=== PATIENT | female | born 1990 | race Asian ===

== ENCOUNTER → 2016-08-17 | Outpatient (CLI) | payer OTHER ==
--- NOTE | 2016-08-17 11:45 | US ---
August 17, 2016 Dear Tracie Travis NP, Thank you for allowing us to see your patient Jc Ferrari for growth evaluation. As you know, she is a 25-year-old 1. Her due date is 10/23/2016 based on LMP consistent with 23-week ultra sound. Her current gestational age based on this dating is 30 weeks 3 days. Her history is signific ant for echogenic intracardiac focus (EIF) noted on anatomy ultrasound. ULTRASOUND: Number of fetuses: 1 Placental location: anterior, no previa presentation: cephalic Heart Rate: 135 bpm Cervix: 3.2 cm viewed transabdominally Maximum vertical pocket: 5.2 cm Measurements: Biparietal diameter: 75 mm 30 weeks, 2 days Head circumference: 290 mm 32 weeks, 0 days Abdominal circumference: 279 mm 32 weeks, 0 days Femur length: 58 mm 30 weeks, 3 days Humerus length: 51 mm 29 weeks, 6 days Transcerebellar diameter: 38 mm 31 weeks, 2 days Average ultrasound age: 30 weeks, 3 days Estimated weight: 1744 gm weight percentile: 69 % ANATOMY anatomy was previously assessed. Today the following structures were visualized and appeared n ormal: supratentorial brain, lateral ventricle measuring 3.1 mm, posterior fossa, 4-chamber heart vi ew, left and right ventricular outflow tracts, inferior and superior vena cava, stomach, bladder, khadijah ateral kidneys. The previously noted echogenic intracardiac focus was not observed on today's study. IMPRESSION: 1. Intrauterine at 30 weeks, 3 days; TOMASA of 10/23/2016. 2. growth is appropriate size for dates. 3. anatomy was previously assessed and today's ultrasound continues to provide reassurance of normal appearing anatomy. RECOMMENDATIONS: I was pleased to share today's ultrasound results with your patient. I will leave further ultrasound follow-up to your clinical discretion. If you would like us to reevaluate her at a later date we wo uld be happy to do so. Thank you for allowing us the opportunity to evaluate your patient. Should you have any further ques tions or concerns please do not hesitate to contact me. No E&M for this encounter. Jo Ann Mar M.D., Ph.D. Diagnosis Department of Obstetrics and Gynecology [facility]
--- NOTE | 2016-08-18 00:03 | US ---
Follow-Up Obstetrical Sonography CLINICAL HISTORY: 25-year-old female with a history of an echogenic intracardiac focus noted on a pr ior anatomic survey. TECHNIQUE: A curvilinear 5-megahertz transducer was used to sonographically evaluate the fetus and t he placenta. M-mode Doppler was used. Dr. Jo Ann Mar is present. Multiple cine clips are stor ed on PACS. COMPARISON STUDY: Chest sonography, dated June 27, 2016. LMP: January 17, 2016, indicating an age of 30 weeks, 3 days, and an estimated date of delivery of 2016. FINDINGS: Again, there is a single viable intrauterine gestation. The fetus is currently vertex in presentation. The maternal cervical length is measured transabdominally at 3.2 cm. The placenta is anteriorly-situated, with no previa. The amniotic fluid volume is appropriate, with a maximal vertic al pocket of 5.2 cm. The heart rate is calculated at 135 bpm. The anatomic survey has been performed in the past, and on today's study, the supra- and infrat entorial structures appear normal. The lateral ventricular diameter measures 3.1 mm. The four-chamb ered heart, right and left ventricular outflow tracts, the inflow tracts, three-vessel tracheal view, interventricular septum, stomach, kidneys, and urinary bladder are identified. A previously describ ed LVEIF was not identified today. biometry is as follows: The biparietal diameter is 75 mm, corresponding to an age of 30 weeks, 2 days, +/- 3 weeks, 1 day, w hich is at the 30th percentile. The head circumference is 290 mm, corresponding to an age of 32 weeks, 0 days, +/- 3 weeks, 0 days, w hich is at the 58th percentile. The abdominal circumference is 279 mm, corresponding to an age of 32 weeks, 0 days, +/- 3 weeks, 0 da ys, which is at the 86th percentile. The femur length is 58 mm, corresponding to an age of 30 weeks, 3 days, +/- 3 weeks, 0 days, which is at the 35th percentile. The humerus length is 51 mm, corresponding to an age of 29 weeks, 6 days. The transverse cerebellar diameter is 38 mm, corresponding to an age of 31 weeks, 2 days, +/- 1 week, 2 days. The composite gestational age is 31 weeks, 2 days. The estimated weight is 1744 gm, +/- 255 gm, which is 3 lbs., 14 oz., +/- 9 ounces, which is at the 69th percentile. The head circumference to abdominal circumference ratio is normal, measuring 1.04. The femur length to biparietal diameter ratio is normal, measuring 77%, and the femur length to abdominal circumferenc e ratio is normal, measuring 21%. IMPRESSION: There is a single viable intrauterine gestation, with no overt structural anomaly, having biometry concordant with menstrual dating and an appropriate interval growth since a previous study of June 27, 2016. A left ventricular echogenic intracardiac focus was not identified on ilir rodriguez's study. Please also refer to Dr. Mar' separate assessments and specific recommendations for follow up. E:KESHA/patrick
== END ==
LOC: FIMAGING 08:57
PROVIDERS: ATTEND Midwife
DX: Z03.79 Encounter for other suspected maternal and fetal conditions ruled out (principal); Z3A.30 30 weeks gestation of pregnancy

== ENCOUNTER 2016-10-22 18:29 | Inpatient (IN) | payer OTHER ==
[2016-10-22] MEDS ORDERED: OXYTOCIN/RINGERS LACTATE 1,000 ML IV PRN (19:10)
[2016-10-22] MEDS ORDERED: LIDOCAINE 1% 30 ML SDV SC PRN (19:10)
[2016-10-22] MEDS ORDERED: AMPICILLIN SODIUM 2 GM in NS 100 ML IV ONE (19:10)
[2016-10-22] MEDS ORDERED: LR 1,000 ML IV PRN (19:10)
[2016-10-22] MEDS ORDERED: OLIVE OIL 118 ML BTL MISC PRN (19:10)
[2016-10-22] MEDS ORDERED: EPSOM SALT 454 GM TP PRN (19:10)
[2016-10-22] MEDS ORDERED: fentaNYL 100 MCG/2 ML INJ IVP ONE (19:10)
[2016-10-22] MEDS ORDERED: TERBUTALINE SULFATE 1 MG/ML VIAL IV PRN (19:10)
--- NOTE | 2016-10-22 19:28 | PDGENHP ---
History and Physical - Chief Complaint contractions - History of Present Illness Pt is a 25 y G1 at 40w0d by LMP and 20 week US here for contraction. Initially started last night and then resolved, then started again at 1700. Now every 3-4 minutes, more painful. Some bloody show. No LOF. Active baby. Low risk . Labs significant for GBS positive, elevated 1 hr GTT, 3 hr with single elevated value, O+, antibody neg, hct 36.2, Varicella non immune, rubella immune, RPR NR , urine culture negative, Hep B NR, HIV NR, GC/CT NR. EIF noted on 20 week anatomy US, resolved Late to care at 21 weeks, no genetic screening performed. S/p tdap and flu vaccines Pt is Khmer speaking only, her is translating. Also her mother is here. History Information - Allergies/Home Medication List Allergies/Adverse Reactions: peach Allergy (Verified 10/22/16 19:10) shellfish derived Allergy (Verified 10/22/16 19:10) I have personally reviewed and updated: family history, medical history, social history, surgical history - Past Medical History no pertinent PMH - Surgical History Reports: no pertinent surgical hx - Family History Positive for: non-pertinent - Social History Smoking Status: Never smoked Alcohol Use: None Drug Use: None Review of Systems ROS: 10pt was reviewed & negative except for what was stated in HPI & below Physical Exam Physical Exam: 128/89, 75, 36.4 Gen: awake, alert, NAD between contractions, sweating with heavy breathing in obvious discomfort during contractions Resp: unlabored CV: RRR Abd: soft, nontender, gravid, EFW 7# Ext: no edema SVE: /-2/intact/vtx vtx confirmed on US FHR baseline 130, mod oni, + accels, no decels Assessment & Plan Assessment: 25 yo G1 at 40w0d Active labor at term GBS pos status reassuring Plan: Admit for labor Continuous monitoring T&S and CBC Routine intrapartum care IV placement Ampicillin IV fentanyl now, she is requesting epidural soon, will alert anesthesia Expect
[2016-10-22] MEDS ORDERED: OLIVE OIL 118 ML BTL ONE (19:43)
[2016-10-22] MEDS ORDERED: LIDOCAINE 1% 30 ML SDV ONE (19:43)
[2016-10-22] MEDS ORDERED: MISOPROSTOL 200 MCG TAB ONE (19:44)
[2016-10-22] MEDS ORDERED: AMMONIA AROMATIC 1 EACH AMP IH ONE (19:44)
[2016-10-22] MEDS ORDERED: TERBUTALINE SULFATE 1 MG/ML VIAL ONE (19:44)
[2016-10-22] MEDS ORDERED: OXYTOCIN 10 UNIT/ML VIAL ONE (19:44)
[2016-10-22 20:26] LABS: % IMMATURE GRANULYOCYTES 0.5 % (0.0-1.1); ABSOLUTE IMMATURE GRANULOCYTES 0.06 10^3/uL (0.00-0.10); ADD DIFF? NO; ADD MORPH? NO; ADD SCAN? NO; ATYPICAL LYMPHOCYTE FLAG 0 (0-99); FRAGMENT RBC FLAG 0 (0-99); HEMATOCRIT 38.3 % (38.0-47.0); HEMOGLOBIN 13.1 g/dL (12.6-16.3); LEFT SHIFT FLG 10 (0-99); LIPEMIA HEMOLYSIS FLAG 90 (0-99); MEAN CELL HEMOGLOBIN 31.6 pg (27.9-34.1); MEAN CELL HEMOGLOBIN CONCENTR. 34.2 g/dL (32.4-36.7); MEAN CELL VOLUME 92.5 fL (81.5-99.8); MEAN PLATELET VOLUME 11.3 fL (8.7-11.7); PLATELET CLUMPS FLAG 0 (0-99); PLATELET COUNT 227 10^3/uL (150-400); RED BLOOD CELL COUNT 4.14 10^6/uL (4.18-5.33); RED CELL DISTRIBUTION WIDTH 13.2 % (11.5-15.2)
[2016-10-22] MEDS ORDERED: fentaNYL 100 MCG/2 ML INJ ONE (21:57)
[2016-10-22] MEDS ORDERED: fentaNYL 2MCG/ML/BUP 0.1% RTU 100 ML BAG EP ONE (21:58)
[2016-10-22] MEDS ORDERED: PHENYLEPHRINE HCL 100 MCG/ML SYR ONE ×2 (21:59→22:00)
[2016-10-22] MEDS ORDERED: BUPIVACAINE 0.25% 30 ML SDV ONE (21:59)
--- NOTE | 2016-10-22 23:17 | OBPROG ---
OBG Progress Note Assessment/Plan: Assessment: active labor s/p epidural status reassuring Plan: expectant management 2nd dose of ampicillin Encouraged [place] to rest 10/22/16 23:16 Subjective: feels so much better after epidural Objective: 10/22/16 20:05 Patient ABO/Rh O POSITIVE 10/22/16 20:05 resting VSS, reviewed in OB tracevue - SVE Dilation (cm): 5 Effacement (%): 90 Station: -1 Current Contraction Pattern: Regular FHR (bpm): 120 FHR Pattern Variability: Moderate FHR Category: 1 Membranes: Intact ICD10 Worksheet Patient Problems: Problems Problem Status Onset Active labor at term Acute - ICD10 Problem Qualifiers (1) Active labor at term
[2016-10-23] MEDS: AMPICILLIN SODIUM 1 GM in NS 100 ML IV SCH ×2 (00:09→04:22)
[2016-10-23] MEDS ORDERED: NALOXONE HCL 0.4 MG/ML INJ IVP PRN (01:06)
[2016-10-23] MEDS ORDERED: PHENYLEPHRINE HCL 100 MCG/ML SYR IVP PRN (01:06)
--- NOTE | 2016-10-23 01:06 | PREANESOB ---
Obstetric Pre-Anesthesia Info - General Info Proposed Procedure: KATT : 1 Para: 0 - Info Status: Full Term FHR Pattern: Reassuring - Labor Status Cervical Dilation per last OB SVE: 5 Station per last OB SVE: -1 PIH: No Magnesium Sulfate in Use: No Indications for Labor Analgesia: BP Control Labor Epidural: Yes Anesthesia Allergies/Adverse Reactions: Allergy/AdvReac Type Severity Reaction Status Date / Time peach Allergy Verified 10/22/16 19:10 shellfish derived Allergy Verified 10/22/16 19:10 Visit Medications: Generic Name Dose Route Start Last Admin Trade Name Freq PRN Reason Stop Dose Admin Ampicillin Sodium 1 gm/ Sodium 100 mls @ 200 mls/hr 10/22/16 23:11 10/23/16 00:09 Chloride IV 11/21/16 23:10 100 mls Q4H NYDIA Administration Protocol Lactated Ringer's 1,000 mls @ 0 mls/hr 10/22/16 19:10 Lr IV 04/20/17 19:09 PRN PRN SEE PROTOCOL CONDITIONS Protocol Per Protocol Oxytocin/Lactated Ringer's 1,000 mls @ 150 mls/hr 10/22/16 19:10 Pitocin 20 Units/Lr (Premix) IV PRN PRN Post- bleeding Ibuprofen 600 mg 10/22/16 19:10 Motrin PO 04/20/17 19:09 Q6HRS PRN post , inflammation Lidocaine HCl 30 ml 10/22/16 19:10 Lidocaine Hcl 1% SC 04/20/17 19:09 ONCE PRN Episiotomy Magnesium Sulfate 454 gm 10/22/16 19:10 Epsom Salt TP 04/20/17 19:09 PRN PRN perineal discomfort Munson Oil 118 ml 10/22/16 19:10 Sweet Oil MISC 04/20/17 19:09 ONCE PRN preneal massage Terbutaline Sulfate 0.25 mg 10/22/16 19:10 Brethine IV 04/20/17 19:09 ONCE PRN Tachysystole Discontinued Medications Generic Name Dose Route Start Last Admin Trade Name Freq PRN Reason Stop Dose Admin Ammonia (Aromatic Spirit) Confirm 10/22/16 19:44 Ammonia Aromatic Administered 10/22/16 19:45 Dose 1 each IH .STK-MED ONE Bupivacaine HCl Confirm 10/22/16 21:59 Sensorcaine 0.25% Sdv Administered 10/22/16 22:00 Dose 30 ml .ROUTE .STK-MED ONE Ephedrine Sulfate Confirm 10/22/16 19:44 Ephedrine Sulfate Administered 10/22/16 19:45 Dose 50 mg .ROUTE .STK-MED ONE Fentanyl 100 mcg 10/22/16 19:10 10/22/16 20:08 Sublimaze IVP 10/22/16 19:11 100 mcg ONCE ONE Administration Fentanyl Confirm 10/22/16 21:57 Sublimaze Administered 10/22/16 21:58 Dose 100 mcg .ROUTE .STK-MED ONE Fentanyl/Bupivacaine HCl Confirm 10/22/16 21:58 Fentanyl/Bupivacaine/Ns 2 Mcg/Ml 0.1% (Premix Administered 10/22/16 21:59 Dose 100 ml EP .STK-MED ONE Ampicillin Sodium 2 gm/ Sodium 110 mls @ 220 mls/hr 10/22/16 19:10 10/22/16 20:08 Chloride IV 10/22/16 19:39 110 mls ONCE ONE Administration Protocol Lidocaine HCl Confirm 10/22/16 19:43 Lidocaine Hcl 1% Administered 10/22/16 19:44 Dose 30 ml .ROUTE .STK-MED ONE Misoprostol Confirm 10/22/16 19:44 Cytotec Administered 10/22/16 19:45 Dose 800 mcg .ROUTE .STK-MED ONE Munson Oil Confirm 10/22/16 19:43 Sweet Oil Administered 10/22/16 19:44 Dose 118 ml .ROUTE .STK-MED ONE Oxytocin Confirm 10/22/16 19:44 Pitocin Administered 10/22/16 19:45 Dose 40 unit .ROUTE .STK-MED ONE Phenylephrine HCl Confirm 10/22/16 21:59 Glynn-Synephrine Administered 10/22/16 22:00 Dose 1,000 mcg .ROUTE .STK-MED ONE Phenylephrine HCl Confirm 10/22/16 22:00 Glynn-Synephrine Administered 10/22/16 22:01 Dose 1,000 mcg .ROUTE .STK-MED ONE Terbutaline Sulfate Confirm 10/22/16 19:44 Brethine Administered 10/22/16 19:45 Dose 1 mg .ROUTE .STK-MED ONE - Focused Exam Height/Weight (Nursing): Height 163 cm Weight 63.049 kg Labs: 10/22/16 20:05 Patient ABO/Rh O POSITIVE 10/22/16 20:05
[2016-10-23] MEDS ORDERED: fentaNYL 2MCG/ML/BUP 0.1% RTU 100 ML EP SCH (01:30)
[2016-10-23] MEDS ORDERED: LR 500 ML IV SCH (01:30)
[2016-10-23] MEDS ORDERED: LR 500 ML IV PRN (01:47)
--- NOTE | 2016-10-23 01:49 | OBPROG ---
OBG Progress Note Assessment/Plan: Assessment: active labor, no significant change in last 2.5 hr. Contractions have spaced out s/p epidural status reassuring Plan: start pitocin for augmentation. also offered AROM, they prefer pitocin 10/22/16 23:16 10/23/16 01:48 10/23/16 01:49 Subjective: Comfortable Objective: 10/22/16 20:05 Patient ABO/Rh O POSITIVE 10/22/16 20:05 - SVE Dilation (cm): 6 (5-6) Effacement (%): 90 Station: -2 Current Contraction Pattern: Regular (every 5 min) FHR (bpm): 140 FHR Pattern Variability: Moderate FHR Category: 1 Membranes: Intact ICD10 Worksheet Patient Problems: Problems Problem Status Onset Active labor at term Acute - ICD10 Problem Qualifiers (1) Active labor at term
[2016-10-23] MEDS ORDERED: OXYTOCIN/RINGERS LACTATE 500 ML IV SCH (02:00)
[2016-10-23] MEDS ORDERED: OXYTOCIN/RINGERS LACTATE 30 UNIT/500 ML BAG IV ONE (02:06)
[2016-10-23] MEDS ORDERED: LIDOCAINE 1% 30 ML SDV ONE (04:13)
[2016-10-23] MEDS ORDERED: OLIVE OIL 118 ML BTL ONE (04:13)
[2016-10-23] MEDS ORDERED: AMMONIA AROMATIC 1 EACH AMP IH ONE (04:14)
[2016-10-23] MEDS ORDERED: MISOPROSTOL 200 MCG TAB ONE (04:14)
[2016-10-23] MEDS ORDERED: TERBUTALINE SULFATE 1 MG/ML VIAL ONE (04:14)
[2016-10-23] MEDS ORDERED: OXYTOCIN 10 UNIT/ML VIAL ONE (04:14)
--- NOTE | 2016-10-23 06:37 | OBPROC ---
- Labor and Delivery Onset of Contractions Date: 10/22/16 Onset of Contractions Type: Spontaneous Rupture of Membranes Date: 10/23/16 Rupture of Membranes Time: 04:30 Rupture of Membranes Type: Artificial Amniotic Fluid Color: Clear Delivery Type: Spontaneous Placenta Delivery Date: 10/23/16 Placenta Delivery Time: 05:44 Episiotomy/Laceration: 2nd Degree Repair: 3-0 EBL: 350 Complications: None - Medications Labor Augmentation/Induction Meds Used: Pitocin Anesthesia: Epidural - Philip Info Infant A Delivery Date: 10/23/16 Delivery Time: 05:40 Sex of : Female Score (1 Min): 8 Score (5 Min): 9 (AROM performed when pt was found to be 10 cm, 1+ station. Clear fluid. Began pushing, pushed x 70 minutes in direct OA presentation. Baby delivered in LYNETTE presentation and was placed onto maternal abdomen. Cord doubly clamped and cut by FOB after delayed cord clamping. IV pitocin 30 units started. Placenta delivered spontaneously with fundal massage. 2nd degree lac repair with 3-0 vicryl. Fundus firm. Rectal exam performed. Mom and baby in stable condition)
[2016-10-23] MEDS ORDERED: HYDROCORTISONE 0.5% CREAM TP PRN (06:39)
[2016-10-23] MEDS ORDERED: SIMETHICONE 80 MG TAB CHEW PO PRN (06:39)
[2016-10-23] MEDS ORDERED: HYDROCODONE/APAP 5/325 TAB PO PRN (06:39)
[2016-10-23] MEDS ORDERED: DOCUSATE SODIUM 100 MG CAP PO PRN (06:39)
[2016-10-23] MEDS: IBUPROFEN 600 MG TAB PO PRN ×3 (06:45→20:08)
[2016-10-24] MEDS: IBUPROFEN 600 MG TAB PO PRN ×3 (05:34→22:40)
--- NOTE | 2016-10-24 08:02 | SOAPPROG ---
SOAP Progress Note Assessment/Plan: Assessment: 25 y.o. female s/p PPD#1. Recovering well with good pain control. with assistance. Plan: Routine care. consult. Anticipate discharge tomorrow. 10/24/16 08:00 Subjective: Reports good pain control and minimal vaginal bleeding. with assistance. Eating and drinking well without nausea or vomiting. Has been out of bed and ambulating without vertigo. Appropriate mood with good support system. Objective: Vital Signs Temp Pulse Resp BP Pulse Ox 36.2 C 79 16 102/66 94 10/23/16 20:05 10/23/16 20:05 10/23/16 20:05 10/23/16 20:05 10/23/16 20:05 Laboratory Results 10/22/16 20:05 10/23/16 10/24/16 10/25/16 05:59 05:59 05:59 Output Total 350 Balance -350 - Time Spent With Patient Time Spent With Patient: 20 minutes - Pending Discharge Pending Discharge Within 24 Hours: Yes Pending Discharge Date: 10/25/16 Pending Discharge Time: 11:00 Physical Exam - Physical Exam General Appearance: WD/WN, alert, no apparent distress EENT: normal ENT inspection Neck: full range of motion, normal inspection Respiratory: lungs clear, normal breath sounds Cardiac/Chest: regular rate, rhythm Abdomen: non-tender, soft Pelvic Exam: normal external exam Rectal: deferred Back: Normal inspection Skin: normal color, warm/dry Lymphatic: no adenopathy Extremities: normal range of motion, non-tender Neuro/Psych: alert, normal mood/affect, oriented x 3 ICD10 Worksheet Patient Problems: Problems Problem Status Onset Active labor at term Acute
[2016-10-24 08:34] VITALS: TEMP 97.7
[2016-10-24 19:32] VITALS: BP 104/66; PULSE 83; RESP 16; O2SAT 96
[2016-10-25] MEDS: IBUPROFEN 600 MG TAB PO PRN (05:11)
--- NOTE | 2016-10-25 08:35 | OBGCSDC ---
General Delivery Information - General Info : 1 Para: 1 Delivery Date: 10/23/16 Delivery Time: 05:40 Delivery Physician/CNM: America Noonan Admission Date: 10/22/16 Labs: Patient ABO/Rh O POSITIVE 10/22/16 20:05 Hct 38.3 % (38.0-47.0) 10/22/16 20:05 - Tiller Info A Sex of : Female Score (1 Min): 8 Score (5 Min): 9 (AROM performed when pt was found to be 10 cm, 1+ station. Clear fluid. Began pushing, pushed x 70 minutes in direct OA presentation. Baby delivered in LYNETTE presentation and was placed onto maternal abdomen. Cord doubly clamped and cut by FOB after delayed cord clamping. IV pitocin 30 units started. Placenta delivered spontaneously with fundal massage. 2nd degree lac repair with 3-0 vicryl. Fundus firm. Rectal exam performed. Mom and baby in stable condition) Vaginal - Diagnosis IUP (Weeks): 40 Labor: Spontaneous Rupture of Membranes Type: Artificial Amniotic Fluid Color: Clear Laceration: 2nd Degree Repair: 3-0 Complications: None - Operations/Procedures Delivery Type: Spontaneous Procedures: Amniotomy Anesthesia: Epidural - Delivery EBL: 350 Anesthesia: Epidural Discharge Information - Discharge Information Discharge Medications: Ibuprofen, Vitamins, Vicodin Condition: Good Instruction/Follow Up: Six Weeks Discharge Physician/CNM: Tracie Travis Discharge Date: 10/25/16 Dictated: No
== END 2016-10-25 11:00 | disposition home or self-care (01) | DRG 775 ==
LOC: FLD 18:29 → OBSVTOIN 18:29 → FOB 10-23 11:00
PROVIDERS: ADMIT Obstetrics & Gynecology; ATTEND Obstetrics & Gynecology
DX: O99.824 Streptococcus B carrier state complicating childbirth (principal); Z37.0 Single live birth; Z3A.40 40 weeks gestation of pregnancy; O70.1 Second degree perineal laceration during delivery
CPT/HCPCS: J0290; J2370; J2590; J3010; J3105

== ENCOUNTER → 2017-01-17 | Outpatient (CLI) | payer OTHER | LOC: FIMAGING 13:40 | PROVIDERS: ATTEND Midwife | DX: N92.6 Irregular menstruation, unspecified (principal) ==